=== PATIENT | male | born 1970 | race Caucasian/White ===

== ENCOUNTER 2019-03-22 18:44 | Emergency (ER) | payer OTHER, SELFPAY ==
[2019-03-22 18:49] VITALS: BP 150/78; PULSE 75; RESP 14; TEMP 36.4; O2SAT 95; BMI 29.0
--- NOTE | 2019-03-22 19:04 | DI.CT.S_ITS ---
PROCEDURE: CT HEAD/BRAIN WO CON INDICATIONS: worst headache of life TECHNIQUE: Noncontrast 4.5 mm thick angled axial sections acquired from the foramen magnum to the vertex, with coronal and sagittal reformats. For radiation dose reduction, the following was used: automated exposure control, adjustment of mA and/or kV according to patient size. COMPARISON: None. FINDINGS: Image quality: Excellent. CSF spaces: Basal cisterns are patent. No extra-axial fluid collections. Ventricles are normal in size and shape. Brain: No midline shift. No intracranial masses or hemorrhage. Marroquin-white matter interface is normal. Skull and face: Calvarium and visualized facial bones are intact, without suspicious lesions. Sinuses: Visualized sinuses and mastoids are clear. IMPRESSION: No acute intracranial disease process. Dictated by: Mallory Cain MD, PhD on 03/22/2019 at 19:59 Approved by: Mallory Cain MD, PhD on 03/22/2019 at 20:01
[2019-03-22 19:18] LABS: Add Manual Diff / Slide Review NO; Basophils Absolute Auto 0 /uL (0-100); Basophils Percent Auto 0.5 % (0-2); Eosinophils Absolute Auto 100 /uL (0-450); Eosinophils Percent Auto 0.6 % (2-4); Hematocrit 50.1 % (41-53); Hemoglobin 16.8 g/dL (13.5-17.5); Lymphocytes Absolute Auto 1300 /uL (1100-4500); Lymphocytes Percent Auto 13.8 % (25-40); Mean Corpuscular HGB Conc 33.6 % (30-36); Mean Corpuscular Hemoglobin 29.2 PG (26-34); Mean Corpuscular Volume 87.1 fL (80-100); Monocytes Absolute Auto 500 /uL (0-900); Monocytes Percent Auto 4.8 % (3-14); Neutrophils Absolute Auto 7800 /uL (1500-7000); Neutrophils Percent Auto 80.3 % (50-75); Platelet Count 293 X10^3/uL (150-400); Red Blood Cell Count 5.75 X10^6/uL (4.5-5.9); Red Cell Distribution Width 13.4 % (11.6-14.8); White Blood Cell Count 9.8 X10^3/uL (4.5-11.0)
--- NOTE | 2019-03-22 19:25 | ED.HA ---
HPI - Headache General Chief Complaint: Headache Stated Complaint: MIGRAINE Time Seen by Provider: 03/22/19 19:00 Source: patient and family Mode of arrival: ambulatory Limitations: no limitations History of Present Illness HPI Narrative: 48-year-old male nonsmoker with history of migraines presents with a severe, sudden onset frontal headache that started during intercourse. His pain he is an 8.5/10 and worsened by bright lights, loud noise and exertion. It is associated with nausea and vomiting. He has had episodes of blurred vision but no ongoing. He denies other neurologic symptoms such as numbness, weakness or tingling. He does have a history of migraines which historically get better with Imitrex, this 1 obviously did not. He denies any recent injury, fever or chills. MD Complaint: headache and migraine Onset (ago): hour(s) Onset description: sudden Location: frontal Severity: severe Severity scale (1-10): 8 Quality: aching, throbbing and different than previous headaches Relieving factors: nothing Context: occurred with exertion/activity Associated symptoms: nausea and vomiting Treatments prior to arrival: migraine medication Related Data Home Medications Medication Instructions Recorded Confirmed propranolol [Inderal LA] 80 mg PO QDAY #30 cap 06/20/16 dgfenllxtn-glkcwbiapcmiu-ezwk 1 cap PO Q4H PRN 03/22/19 03/22/19 sertraline 25 mg PO DAILY 03/22/19 03/22/19 sumatriptan succinate [Imitrex] 50 mg PO Q2-4H PRN 03/22/19 03/22/19 Allergies Allergy/AdvReac Type Severity Reaction Status Date / Time No Known Drug Allergies Allergy Verified 03/22/19 18:54 Review of Systems Constitutional Denies chills, Denies fever(s), Reports headache(s), Denies lethargy and Denies weakness Eyes Denies change in vision, Denies eye discharge, Denies irritation and Denies loss of vision ENT Ears, Nose, Mouth, and Throat: Denies change in voice, Reports headache(s), Denies neck pain and Denies sore throat Cardiovascular Denies chest pain, Denies irregular heart rhythm, Denies lightheadedness, Denies palpitations, Denies dyspnea, Denies dyspnea on exertion and Denies orthopnea Respiratory Denies cough, Denies dyspnea, Denies dyspnea on exertion and Denies wheezing Gastrointestinal Gastrointestinal: Denies abdominal pain, Denies change in bowel habits, Denies diarrhea, Reports nausea and Reports vomiting Genitourinary Denies hematuria, Denies flank pain, Denies urinary incontinence and Denies urinary urgency Musculoskeletal Denies neck pain Integumentary/Breasts Denies pruritus, Denies erythema, Denies rash and Denies wounds Neurologic Denies confusion, Reports headache(s), Denies loss of vision and Denies weakness Psychiatric Denies anxiety, Denies confusion, Denies depression, Denies homicidal ideation and Denies suicidal ideation Endocrine Denies palpitations Hematologic/Lymphatic Denies easy bruising Allergic/Immunologic Denies wheezing [facility] Medical History Migraine (Acute) Social History Smoking Status: Never smoker Social History Smoking Status: Never smoker Exam Narrative Exam Narrative: GENERAL: 48-year-old male appears stated age, obviously uncomfortable, rubbing his forehead, sitting in a dark room HEAD: Atraumatic. Normocephalic. No temporal or scalp tenderness. EYES: Pupils equal round and reactive. Extraocular motions intact. No scleral icterus. No injection or drainage. ENT: Nose without bleeding, purulent drainage or septal hematoma. Throat without erythema, tonsillar hypertrophy or exudate. Uvula midline. Airway patent. NECK: Trachea midline. No JVD or lymphadenopathy. Supple, nontender, no meningeal signs. CARDIOVASCULAR: Regular rate and rhythm without murmurs, gallops, or rubs. RESPIRATORY: Clear to auscultation. Breath sounds equal bilaterally. No wheezes, rales, or rhonchi. GASTROINTESTINAL: Abdomen soft, non-tender, nondistended. No hepato-splenomegaly, or palpable masses. No guarding. EXTREMITIES: No clubbing, cyanosis, or edema. No joint tenderness, effusion, or edema noted. BACK: Nontender without deformity or crepitance. No flank tenderness. NEURO: AOx3. SKIN: No rash or erythema. NIH Stroke Scale 1a. LOC: Patient is alert and keenly responsive (0) 1b. LOC Questions: Patient answers both LOC questions accurately (0) 1c. LOC Commands: Patient performs both tasks correctly (0) 2. Best Gaze: Normal (0) 3. Visual: No visual loss (0) 4. Facial palsy: Normal symmetrical movements (0) 5. Motor arm: No drift (0) 6. Motor leg: No drift (0) 7. Limb ataxia: Absent (0) 8. Sensory: Normal (0) 9. Best language: No aphasia; normal (0) 10. Dysarthria: Normal (0) 11. Extinction and inattention: No abnormality (0) NIHSS: 0 Initial Vital Signs Initial Vital Signs: Vital Signs Temperature 97.6 F 03/22/19 18:49 Pulse Rate 75 03/22/19 18:49 Respiratory Rate 14 03/22/19 18:49 Blood Pressure 150/78 H 03/22/19 18:49 Pulse Oximetry 95 03/22/19 18:49 Course Orders Ordered: ED Orders 03/22/19 19:04 CT head/brain wo con Stat 03/22/19 19:10 Complete Blood Count AUTO DIFF Stat Comprehensive Metabolic Panel Stat PTT [Partial Thromboplastin Time] Stat Prothrombin Time INR Stat Discontinued Medications Dexamethasone (Decadron) 10 mg IV NOW ONE Stop: 03/22/19 19:20 Last Admin: 03/22/19 19:26 Dose: 10 mg Diphenhydramine HCl (Benadryl) 25 mg IV NOW ONE Stop: 03/22/19 19:20 Last Admin: 03/22/19 19:26 Dose: 25 mg Sodium Chloride (Normal Saline 0.9%) 1,000 mls @ 1,000 mls/hr IV BOLUS ONE Stop: 03/22/19 20:18 Last Infusion: 03/22/19 21:01 Dose: 0 mls/hr Admin: 03/22/19 19:26 Dose: 1,000 mls/hr Ketorolac Tromethamine (Toradol) 15 mg IV NOW ONE Stop: 03/22/19 20:07 Last Admin: 03/22/19 20:18 Dose: 15 mg Lorazepam (Ativan) 1 mg IV NOW ONE Stop: 03/22/19 19:55 Last Admin: 03/22/19 19:56 Dose: 1 mg Metoclopramide HCl (Reglan) 10 mg IV NOW ONE Stop: 03/22/19 19:20 Last Admin: 03/22/19 19:26 Dose: 10 mg Reevaluation(s) Reevaluation #1: Patient feels moderate improvement of symptoms after 1st round of medications including saline, Reglan and Benadryl. Patient got a bit sleepy and admittedly, bit irritated with Reglan. He states he felt like he was crawling on his skin. He rebounded nicely after a bit of Ativan and Toradol were given. Soon thereafter his pain had dropped to a 2 or 3 Vital Signs - 8 hr 03/22/19 21:49 Pulse Rate 58 L Respiratory Rate 16 Blood Pressure 119/82 Pulse Oximetry 95 MDM - Headache Lab Data Result diagrams: 03/22/19 19:10 03/22/19 19:10 Lab Results 03/22/19 03/22/19 03/22/19 Range/Units 19:10 19:10 19:10 WBC 9.8 (4.5-11.0) X10^3/uL RBC 5.75 (4.5-5.9) X10^6/uL Hgb 16.8 (13.5-17.5) g/dL Hct 50.1 (41-53) % MCV 87.1 (80-100) fL MCH 29.2 (26-34) PG MCHC 33.6 (30-36) % RDW 13.4 (11.6-14.8) % Plt Count 293 (150-400) X10^3/uL Neut % (Auto) 80.3 H (50-75) % Lymph % (Auto) 13.8 L (25-40) % [place] % (Auto) 4.8 (3-14) % Eos % (Auto) 0.6 L (2-4) % Baso % (Auto) 0.5 (0-2) % Neut # (Auto) 7800 H (3894-6852) /uL Lymph # (Auto) 1300 (1989-9720) /uL [place] # (Auto) 500 (0-900) /uL Eos # (Auto) 100 (0-450) /uL Baso # (Auto) 0 (0-100) /uL PT 11.1 (10.1-12.7) SECONDS INR 1.0 (0.9-1.3) APTT 33 (26.4-36.2) SECONDS Sodium 141 (137-145) mmol/L Potassium 3.8 (3.4-5.1) mmol/L Chloride 105 (98-107) mmol/L Carbon Dioxide 25 (22-32) mmol/L BUN 12 (9-20) mg/dL Creatinine 0.90 (0.66-1.25) mg/dL Estimated GFR > 60.0 (>60) mL/min BUN/Creatinine Ratio 13.3 (6-22) Glucose 107 H (70-100) mg/dL Calcium 9.5 (8.4-10.2) mg/dL Total Bilirubin 0.3 (0.2-1.3) mg/dL AST 25 (17-59) IU/L ALT 36 (21-72) IU/L Alkaline Phosphatase 66 (38-126) U/L Total Protein 8.2 (6.3-8.2) g/dL Albumin 4.9 (3.5-5.0) g/dL Globulin 3.3 (1.7-4.1) g/dL Albumin/Globulin Ratio 1.5 (1.0-2.8) Imaging Data CT scan - head: Radiologist's impression: Chart Viewer Diagnostics DATE TYPE STATUS AUTHOR Hx 03/22/19 19:04 Mallory Cain Dawson Skaggs 48, M0 1970 DEP ER, ED.LOC - Main ED 180.34cm 94.347kg BMI: 29.0kg/m? Headache Search Chart ONSET 03/22/19 21:49 Dawson Skaggs 48 [place] 1970 [place] [address] CT Scan Report Signed Patient: Dawson Skaggs HMR#: [id number] : 1970Acct:[id number] Age/Sex: 48 / MDate of Service: 03/22/19 Loc: ED Accession Number: [id number] Procedure: CT head/brain wo con Ordering Provider: Geoffrey Lazar D.O. PROCEDURE: CT HEAD/BRAIN WO CON INDICATIONS: worst headache of life TECHNIQUE: Noncontrast 4.5 mm thick angled axial sections acquired from the foramen magnum to the vertex, with coronal and sagittal reformats. For radiation dose reduction, the following was used: automated exposure control, adjustment of mA and/or kV according to patient size. COMPARISON: None. FINDINGS: Image quality: Excellent. CSF spaces: Basal cisterns are patent. No extra-axial fluid collections. Ventricles are normal in size and shape. Brain: No midline shift. No intracranial masses or hemorrhage. Marroquin-white matter interface is normal. Skull and face: Calvarium and visualized facial bones are intact, without suspicious lesions. Sinuses: Visualized sinuses and mastoids are clear. IMPRESSION: No acute intracranial disease process. Dictated by: Mallory Cain MD, PhD on 03/22/2019 at 19:59 Approved by: Mallory Cain MD, PhD on 03/22/2019 at 20:01 [facility] Narrative Medical decision making narrative: Multiple etiologies for patient's symptoms considered including: [Atypical migraine versus subarachnoid hemorrhage versus other] Patient's symptoms improved or duration of stay with above-stated therapies. Findings and discharge diagnosis discussed with patient/family followed by verbalization of understanding Return precautions discussed with patient/family whom verbalize understanding. Discharge Plan Departure Patient Disposition: Home Clinical Impression: Headache Qualifiers: Headache type: unspecified Headache chronicity pattern: acute headache Intractability: not intractable Qualified Code(s): R51 - Headache Discharge Date/Time: 03/22/19 21:10 Interventions: ED Discharge Assessment Last Done: 03/22/19 21:49 Instructions: DI for Headache Activity Restrictions/Additional Instructions: *You have been diagnosed with [ acute headache ] *What to do: *Take medications as directed *Follow up with your primary care provider in 2-3 days, call for an appointment. Let them know you were seen in the Emergency Department and that we ask that you be seen in follow up *Return to ER if you should have any new, worsening or concerning symptoms Prescriptions: No Action propranolol [Inderal LA] 80 MG capsule,extended release 24 hr 80 mg PO QDAY Qty: 30 RF: 0 pzossqmrez-hsqaqfwokkgvf-robk 50-325-40 mg Capsule 1 cap PO Q4H PRN (Reason: Migraine Headache) RF: 0 sumatriptan succinate [Imitrex] 25 mg Tablet 50 mg PO Q2-4H PRN (Reason: Migraine Headache) RF: 0 sertraline 25 mg tablet 25 mg PO DAILY RF: 0
[2019-03-22 19:26] LABS: Prothrombin Time 11.1 SECONDS (10.1-12.7)
[2019-03-22] MEDS: DEXAMETHASONE 10 MG/ML VIAL IV (19:26)
[2019-03-22] MEDS: METOCLOPRAMIDE 10 MG/2 ML INJ IV (19:26)
[2019-03-22] MEDS: SODIUM CHLORIDE 0.9% 1,000 ML 1000 ML IV (19:26)
[2019-03-22] MEDS: diphenhydrAMINE 50 MG/ML VIAL 25 MG IV (19:26)
[2019-03-22 19:29] LABS: PTT Partial Thromboplastin Tim 33 SECONDS (26.4-36.2)
[2019-03-22 19:30] LABS: Alanine Aminotransferase 36 IU/L (21-72); Albumin 4.9 g/dL (3.5-5.0); Albumin Globulin Ratio 1.5 (1.0-2.8); Alkaline Phosphatase 66 U/L (38-126); Aspartate Aminotransferase 25 IU/L (17-59); BUN Creatinine Ratio 13.3 (6-22); Bilirubin Total 0.3 mg/dL (0.2-1.3); Blood Urea Nitrogen 12 mg/dL (9-20); Calcium 9.5 mg/dL (8.4-10.2); Carbon Dioxide 25 mmol/L (22-32); Chloride 105 mmol/L (98-107); Estimated Glomerular Filt Rate > 60.0 mL/min (>60); Globulin 3.3 g/dL (1.7-4.1); Glucose 107 mg/dL (70-100); HEMOLYSIS 16 (0-50); Potassium 3.8 mmol/L (3.4-5.1); Sodium 141 mmol/L (137-145); Total Protein 8.2 g/dL (6.3-8.2)
[2019-03-22] MEDS: LORazepam 2 MG/ML SYRINGE 1 MG IV (19:56)
[2019-03-22] MEDS: KETOROLAC 60 MG/2 ML VIAL 15 MG IV (20:18)
[2019-03-22 21:49] VITALS: BP 119/82; PULSE 58; RESP 16; O2SAT 95
--- NOTE | 2019-03-23 04:07 | ED_ITS ---
HPI - Headache General Chief Complaint: Headache Stated Complaint: MIGRAINE Time Seen by Provider: 03/22/19 19:00 Source: patient and family Mode of arrival: ambulatory Limitations: no limitations History of Present Illness HPI Narrative: 48-year-old male nonsmoker with history of migraines presents with a severe, sudden onset frontal headache that started during intercourse. His pain he is an 8.5/10 and worsened by bright lights, loud noise and exertion. It is associated with nausea and vomiting. He has had episodes of blurred vision but no ongoing. He denies other neurologic symptoms such as numbness, we akness or tingling. He does have a history of migraines which historically get better with Imitrex, this 1 obviously did not. He denies any recent injury, fever or chills. MD Complaint: headache and migraine Onset (ago): hour(s) Onset description: sudden Location: frontal Severity: severe Severity scale (1-10): 8 Quality: aching, throbbing and different than previous headaches Relieving factors: nothing Context: occurred with exertion/activity Associated symptoms: nausea and vomiting Treatments prior to arrival: migraine medication Related Data Home Medications Medication Instructions Recorded Confirmed propranolol [Inderal LA] 80 mg PO QDAY #30 cap 06/20/16 lpetlebboz-dnxcjtzuhenmp-iwzi 1 cap PO Q4H PRN 03/22/19 03/22/19 sertraline 25 mg PO DAILY 03/22/19 03/22/19 sumatriptan succinate [Imitrex] 50 mg PO Q2-4H PRN 03/22/19 03/22/19 Allergies Allergy/AdvReac Type Severity Reaction Status Date / Time No Known Drug Allergies Allergy Verified 03/22/19 18:54 Review of Systems Constitutional Denies chills, Denies fever(s), Reports headache(s), Denies lethargy and Denies weakness Eyes Denies change in vision, Denies eye discharge, Denies irritation and Denies loss of vision ENT Ears, Nose, Mouth, and Throat: Denies change in voice, Reports headache(s), Denies neck pain and Denies sore throat Cardiovascular Denies chest pain, Denies irregular heart rhythm, Denies lightheadedness, Denies palpitations, Denies dyspnea, Denies dyspnea on exertion and Denies orthopnea Respiratory Denies cough, Denies dyspnea, Denies dyspnea on exertion and Denies wheezing Gastrointestinal Gastrointestinal: Denies abdominal pain, Denies change in bowel habits, Denies diarrhea, Reports nausea and Reports vomiting Genitourinary Denies hematuria, Denies flank pain, Denies urinary incontinence and Denies urinary urgency Musculoskeletal Denies neck pain Integumentary/Breasts Denies pruritus, Denies erythema, Denies rash and Denies wounds Neurologic Denies confusion, Reports headache(s), Denies loss of vision and Denies weakness Psychiatric Denies anxiety, Denies confusion, Denies depression, Denies homicidal ideation and Denies suicidal ideation Endocrine Denies palpitations Hematologic/Lymphatic Denies easy bruising Allergic/Immunologic Denies wheezing PFSH Medical History Migraine (Acute) Social History Smoking Status: Never smoker Social History Smoking Status: Never smoker Exam Narrative Exam Narrative: GENERAL: 48-year-old male appears stated age, obviously uncomfortable, rubbing his forehead, sitting in a dark room HEAD: Atraumatic. Normocephalic. No temporal or scalp tenderness. EYES: Pupils equal round and reactive. Extraocular motions intact. No scleral icterus. No injection or drainage. ENT: Nose without bleeding, purulent drainage or septal hematoma. Throat without erythema, tonsillar hypertrophy or exudate. Uvula midline. Airway patent. NECK: Trachea midline. No JVD or lymphadenopathy. Supple, nontender, no meningeal signs. CARDIOVASCULAR: Regular rate and rhythm without murmurs, gallops, or rubs. RESPIRATORY: Clear to auscultation. Breath sounds equal bilaterally. No wheezes, rales, or rhonchi. GASTROINTESTINAL: Abdomen soft, non-tender, nondistended. No hepato- splenomegaly, or palpable masses. No guarding. EXTREMITIES: No clubbing, cyanosis, or edema. No joint tenderness, effusion, or edema noted. BACK: Nontender without deformity or crepitance. No flank tenderness. NEURO: AOx3. SKIN: No rash or erythema. NIH Stroke Scale 1a. LOC: Patient is alert and keenly responsive (0) 1b. LOC Questions: Patient answers both LOC questions accurately (0) 1c. LOC Commands: Patient performs both tasks correctly (0) 2. Best Gaze: Normal (0) 3. Visual: No visual loss (0) 4. Facial palsy: Normal symmetrical movements (0) 5. Motor arm: No drift (0) 6. Motor leg: No drift (0) 7. Limb ataxia: Absent (0) 8. Sensory: Normal (0) 9. Best language: No aphasia; normal (0) 10. Dysarthria: Normal (0) 11. Extinction and inattention: No abnormality (0) NIHSS: 0 Initial Vital Signs Initial Vital Signs: Vital Signs Temperature 97.6 F 03/22/19 18:49 Pulse Rate 75 03/22/19 18:49 Respiratory Rate 14 03/22/19 18:49 Blood Pressure 150/78 H 03/22/19 18:49 Pulse Oximetry 95 03/22/19 18:49 Course Orders Ordered: ED Orders 03/22/19 19:04 CT head/brain wo con Stat 03/22/19 19:10 Complete Blood Count AUTO DIFF Stat Comprehensive Metabolic Panel Stat PTT [Partial Thromboplastin Time] Stat Prothrombin Time INR Stat Discontinued Medications Dexamethasone (Decadron) 10 mg IV NOW ONE Stop: 03/22/19 19:20 Last Admin: 03/22/19 19:26 Dose: 10 mg Diphenhydramine HCl (Benadryl) 25 mg IV NOW ONE Stop: 03/22/19 19:20 Last Admin: 03/22/19 19:26 Dose: 25 mg Sodium Chloride (Normal Saline 0.9%) 1,000 mls @ 1,000 mls/hr IV BOLUS ONE Stop: 03/22/19 20:18 Last Infusion: 03/22/19 21:01 Dose: 0 mls/hr Admin: 03/22/19 19:26 Dose: 1,000 mls/hr Ketorolac Tromethamine (Toradol) 15 mg IV NOW ONE Stop: 03/22/19 20:07 Last Admin: 03/22/19 20:18 Dose: 15 mg Lorazepam (Ativan) 1 mg IV NOW ONE Stop: 03/22/19 19:55 Last Admin: 03/22/19 19:56 Dose: 1 mg Metoclopramide HCl (Reglan) 10 mg IV NOW ONE Stop: 03/22/19 19:20 Last Admin: 03/22/19 19:26 Dose: 10 mg Reevaluation(s) Reevaluation #1: Patient feels moderate improvement of symptoms after 1st round of medications including saline, Reglan and Benadryl. Patient got a bit sleepy and admittedly, bit irritated with Reglan. He states he felt like he was crawling on his skin. He rebounded nicely after a bit of Ativan and Toradol were given. Soon thereafter his pain had dropped to a 2 or 3 Vital Signs - 8 hr 03/22/19 21:49 Pulse Rate 58 L Respiratory Rate 16 Blood Pressure 119/82 Pulse Oximetry 95 MDM - Headache Lab Data Result diagrams: 03/22/19 19:10 03/22/19 19:10 Lab Results 03/22/19 03/22/19 03/22/19 Range/Units 19:10 19:10 19:10 WBC 9.8 (4.5-11.0) X10^3/uL RBC 5.75 (4.5-5.9) X10^6/uL Hgb 16.8 (13.5-17.5) g/dL Hct 50.1 (41-53) % MCV 87.1 (80-100) fL MCH 29.2 (26-34) PG MCHC 33.6 (30-36) % RDW 13.4 (11.6-14.8) % Plt Count 293 (150-400) X10^3/uL Neut % (Auto) 80.3 H (50-75) % Lymph % (Auto) 13.8 L (25-40) % [place] % (Auto) 4.8 (3-14) % Eos % (Auto) 0.6 L (2-4) % Baso % (Auto) 0.5 (0-2) % Neut # (Auto) 7800 H (8121-5192) /uL Lymph # (Auto) 1300 (7332-6057) /uL [place] # (Auto) 500 (0-900) /uL Eos # (Auto) 100 (0-450) /uL Baso # (Auto) 0 (0-100) /uL PT 11.1 (10.1-12.7) SECONDS INR 1.0 (0.9-1.3) APTT 33 (26.4-36.2) SECONDS Sodium 141 (137-145) mmol/L Potassium 3.8 (3.4-5.1) mmol/L Chloride 105 (98-107) mmol/L Carbon Dioxide 25 (22-32) mmol/L BUN 12 (9-20) mg/dL Creatinine 0.90 (0.66-1.25) mg/dL Estimated GFR > 60.0 (>60) mL/min BUN/Creatinine Ratio 13.3 (6-22) Glucose 107 H (70-100) mg/dL Calcium 9.5 (8.4-10.2) mg/dL Total Bilirubin 0.3 (0.2-1.3) mg/dL AST 25 (17-59) IU/L ALT 36 (21-72) IU/L Alkaline Phosphatase 66 (38-126) U/L Total Protein 8.2 (6.3-8.2) g/dL Albumin 4.9 (3.5-5.0) g/dL Globulin 3.3 (1.7-4.1) g/dL Albumin/Globulin Ratio 1.5 (1.0-2.8) Imaging Data CT scan - head: Radiologist's impression: Chart Viewer Diagnostics DATE TYPE STATUS AUTHOR Hx 03/22/19 19:04 Mallory Cain Dawson Skaggs 48, M0 1970 DEP ER, ED.LOC - Main ED 180.34cm 94.347kg BMI: 29.0kg/m? Headache Search Chart ONSET 03/22/19 21:49 Dawson Skaggs 48 M 1970 [place] [address] CT Scan Report Signed Patient: Dawson Skaggs R#: [id number] : 1970Acct:[id number] Age/Sex: 48 / MDate of Service: 03/22/19 Loc: ED Accession Number: [id number] Procedure: CT head/brain wo con Ordering Provider: Geoffrey Lazar D.O. PROCEDURE: CT HEAD/BRAIN WO CON INDICATIONS: worst headache of life TECHNIQUE: Noncontrast 4.5 mm thick angled axial sections acquired from the foramen magnum to the vertex, with coronal and sagittal reformats. For radiation dose reduction, the following was used: automated exposure control, adjustment of mA and/or kV according to patient size. COMPARISON: None. FINDINGS: Image quality: Excellent. CSF spaces: Basal cisterns are patent. No extra-axial fluid collections. Ventricles are normal in size and shape. Brain: No midline shift. No intracranial masses or hemorrhage. Marroquin-white matter interface is normal. Skull and face: Calvarium and visualized facial bones are intact, without suspicious lesions. Sinuses: Visualized sinuses and mastoids are clear. IMPRESSION: No acute intracranial disease process. Dictated by: Mallory Cain MD, PhD on 03/22/2019 at 19:59 Approved by: Mallory Cain MD, PhD on 03/22/2019 at 20:01 [facility] Narrative Medical decision making narrative: Multiple etiologies for patient's symptoms considered including: [Atypical migraine versus subarachnoid hemorrhage versus other] Patient's symptoms improved or duration of stay with above-stated therapies. Findings and discharge diagnosis discussed with patient/family followed by verbalization of understanding Return precautions discussed with patient/family whom verbalize understanding. Discharge Plan Departure Patient Disposition: Home Clinical Impression: Headache Qualifiers: Headache type: unspecified Headache chronicity pattern: acute headache Intractability: not intractable Qualified Code(s): R51 - Headache Discharge Date/Time: 03/22/19 21:10 Interventions: ED Discharge Assessment Last Done: 03/22/19 21:49 Instructions: DI for Headache Activity Restrictions/Additional Instructions: *You have been diagnosed with [ acute headache ] *What to do: *Take medications as directed *Follow up with your primary care provider in 2-3 days, call for an appointment. Let them know you were seen in the Emergency Department and that we ask that you be seen in follow up *Return to ER if you should have any new, worsening or concerning symptoms Prescriptions: No Action propranolol [Inderal LA] 80 MG capsule,extended release 24 hr 80 mg PO QDAY Qty: 30 RF: 0 csqxfhavth-gknzaptahgoqt-yxgw 50-325-40 mg Capsule 1 cap PO Q4H PRN (Reason: Migraine Headache) RF: 0 sumatriptan succinate [Imitrex] 25 mg Tablet 50 mg PO Q2-4H PRN (Reason: Migraine Headache) RF: 0 sertraline 25 mg tablet 25 mg PO DAILY RF: 0
== END 2019-03-22 21:10 | disposition home or self-care (01) ==
PROVIDERS: Emergency Provider Emergency Medicine
DX: R51 Headache (principal); R11.2 Nausea with vomiting, unspecified; H53.8 Other visual disturbances
CPT/HCPCS: 36591; 70450; 80053; 85025; 85610; 85730; 96361; 96374; 96375; 99283; 99284; J1100; J1200; J1885; J2060; J2765

== ENCOUNTER → 2021-06-13 19:01 | Outpatient (CLI) | payer OTHER, SELFPAY ==
--- NOTE | 2021-06-13 | DI.MRI.S_ITS ---
PROCEDURE: MR CERVICAL SPINE WO CON INDICATIONS: Radiculopathy, cervical region TECHNIQUE: Noncontrast sagittal T1 spin echo and T2 fast spin echo, sagittal STIR, foraminal oblique sagittal T2 fast spin echo, and axial gradient echo or T2 fast spin echo through the cervical spine. COMPARISON: None. FINDINGS: Image quality: Excellent. Alignment and Curvature: There is normal bony alignment. Bone Marrow: Reactive endplate changes noted adjacent to the C5-C6 and C6-C7 discs. Spinal Cord: Visualized spinal cord has normal size and signal. No cerebellar tonsillar herniation. Paraspinous Soft Tissues: No paravertebral masses. Prevertebral soft tissues are normal in thickness. C2-C3: Loss of disc signal. No central stenosis. Mild bilateral facet hypertrophy. Mild bilateral neural foraminal narrowing. No neural compression. C3-C4: Loss of disc signal. Mild, diffuse disc bulge. Mild bilateral facet hypertrophy. Mild bilateral uncovertebral joint hypertrophy. Mild narrowing of the central canal. Severe bilateral neural foraminal narrowing with compression of the exiting C4 nerve roots. C4-C5: Loss of disc signal and slight loss of disc height. Mild, diffuse disc bulge. Mild bilateral facet hypertrophy. Mild narrowing of the central canal. Moderate to severe bilateral neural foraminal narrowing. No neural compression. C5-C6: Loss of disc signal and height. Moderate, diffuse disc bulge. Severe narrowing of the central canal with slight compression of the cervical spinal cord. Mild bilateral facet hypertrophy. Moderate bilateral uncovertebral joint hypertrophy. Severe bilateral neural foraminal narrowing with compression of the exiting C6 nerve roots. C6-C7: Loss of disc signal and height. Mild, diffuse disc bulge. Mild bilateral facet hypertrophy. Mild bilateral uncovertebral joint hypertrophy. Mild to moderate narrowing of the central canal. Severe bilateral neural foraminal narrowing with compression of the exiting C7 nerve roots. C7-T1: Loss of disc signal and height. Mild to moderate diffuse disc bulge. Mild bilateral facet hypertrophy. Mild narrowing of the central canal. Moderate right and mild left neural foraminal narrowing. No neural compression IMPRESSION: 1. Multilevel degenerative disc disease. 2. Multilevel facet and uncovertebral arthropathy. 3. Severe C5-C6 central canal narrowing with compression of the cervical spinal cord. 4. Severe bilateral C3-C4, C5-C6 and C6-C7 neural foraminal narrowing with compression of the exiting bilateral C4, C6 and C7 nerve roots. Dictated by: Mallory Cain MD, PhD on 06/14/2021 at 9:54 Approved by: Mallory Cain MD, PhD on 06/14/2021 at 9:58
== END ==
PROVIDERS: PCP Nurse Practitioner Family; Referring Provider Family Medicine; Visit Provider Family Medicine
DX: M50.11 Cervical disc disorder with radiculopathy, high cervical region (principal); M47.22 Other spondylosis with radiculopathy, cervical region; M48.02 Spinal stenosis, cervical region
CPT/HCPCS: 72141

== ENCOUNTER → 2021-07-19 09:41 | Outpatient (CLI) | payer OTHER, SELFPAY ==
--- NOTE | 2021-07-19 | DI.RAD.S_ITS ---
PROCEDURE: XR CERVICAL SPINE 4V OR 5V INDICATIONS: Spondylosis without myelopathy or radiculopathy, c TECHNIQUE: 5 views of the cervical spine acquired. COMPARISON: None. FINDINGS: Bones: No acute fracture. Straightening of the normal lordotic curvature. Multilevel degenerative endplate sclerosis and spurring. Diffuse facet arthropathy. Moderate narrowing of the C5-C6 and C6-C7 disc space. Mild narrowing of the C7-T1 disc space. On the right, mild C3-C4, C4-C5 and C5-C6 bony foraminal narrowing. On the left, moderate C5-C6 bony foraminal narrowing. Mild C3-C4 bony foraminal narrowing. Soft tissues: No prevertebral soft tissue swelling. IMPRESSION: Cervical spondylosis and facet arthropathy as above. Dictated by: Ji Aguilar M.D. on 07/19/2021 at 11:03 Approved by: Ji Aguilar M.D. on 07/19/2021 at 11:06
--- NOTE | 2021-07-19 10:08 | DI.CT.S_ITS ---
PROCEDURE: CT CERVICAL SPINE WO CON INDICATIONS: Spondylosis without myelopathy or radiculopathy, c TECHNIQUE: Noncontrast 3 mm thick sections acquired from the skull base to the T4 level. Sagittal and coronal reformats were then constructed. For radiation dose reduction, the following was used: automated exposure control, adjustment of mA and/or kV according to patient size. COMPARISON: [facility], MR, MR CERVICAL SPINE WO CON, 06/13/2021, 19:11. [facility], CR, XR CERVICAL SPINE 4V OR 5V, 07/19/2021, 9:48. FINDINGS: Image quality: Excellent. Bones: No fractures or dislocations. Visualized superior ribs are intact. There is moderate to severe disc space narrowing seen at the C5-C6 level, with associated endplate irregularity and sclerosis. Posteriorly projected endplate osteophytes are seen. There is moderate to severe central canal narrowing seen at C5-C6. Moderate to severe bilateral neural foraminal narrowing can be seen at this level, right worse than left. Moderate disc space narrowing is seen at C6-C7, with mild sclerosis and endplate irregularity posteriorly, with posteriorly directed endplate osteophytes. Focal degenerative change is seen involving the C1-C2 interface anteriorly. Milder degenerative changes are seen elsewhere. Soft tissues: Prevertebral soft tissues are normal in thickness. No paravertebral hematomas. No apical pneumothoraces. IMPRESSION: Focal lower cervical spine degenerative changes are seen, which are overall worst at C5-C6. Dictated by: Darek Amin M.D. on 07/19/2021 at 9:17 Approved by: Darek Amin M.D. on 07/19/2021 at 9:20
== END ==
PROVIDERS: PCP Nurse Practitioner Family; Referring Provider Neurological Surgery; Visit Provider Neurological Surgery
DX: M47.12 Other spondylosis with myelopathy, cervical region (principal); M47.22 Other spondylosis with radiculopathy, cervical region; M48.02 Spinal stenosis, cervical region
CPT/HCPCS: 72050; 72125

== ENCOUNTER 2023-01-20 17:32 | Emergency (ER) | payer OTHER, SELFPAY ==
[2023-01-20 17:35] VITALS: BP 158/104; PULSE 74; RESP 18; TEMP 37.3; O2SAT 96; BMI 30.1
[2023-01-20 17:40] VITALS: PULSE 73; RESP 24; O2SAT 96
--- NOTE | 2023-01-20 17:44 | DI.RAD.S_ITS ---
PROCEDURE: XR CHEST 1V INDICATIONS: chest pain TECHNIQUE: One view of the chest was acquired. COMPARISON: [facility], , CHEST 1 VIEW, 06/20/2016, 22:01. FINDINGS: Surgical changes and devices: None. Lungs and pleura: Lungs are clear. No pleural effusions or pneumothorax. Mediastinum: Mediastinal contours appear normal. Heart size is normal. Bones and chest wall: No suspicious bony lesions. Overlying soft tissues appear unremarkable. IMPRESSION: Portable chest within normal limits. Dictated by: Darek Amin M.D. on 01/20/2023 at 17:22 Approved by: Darek Amin M.D. on 01/20/2023 at 17:22
[2023-01-20 18:00] VITALS: BP 140/79; PULSE 71; RESP 28; O2SAT 96
[2023-01-20 18:15] LABS: Add Manual Diff / Slide Review NO; Basophils Absolute Auto 100 /uL (0-100); Basophils Percent Auto 0.9 % (0-2); Eosinophils Absolute Auto 100 /uL (0-450); Eosinophils Percent Auto 1.5 % (2-4); Hemoglobin 15.2 g/dL (13.5-17.5); Lymphocytes Absolute Auto 2100 /uL (1100-4500); Lymphocytes Percent Auto 29.5 % (25-40); Mean Corpuscular HGB Conc 33.8 % (30-36); Mean Corpuscular Hemoglobin 29.9 PG (26-34); Mean Corpuscular Volume 88.5 fL (80-100); Monocytes Absolute Auto 400 /uL (0-900); Monocytes Percent Auto 5.7 % (3-14); Neutrophils Absolute Auto 4400 /uL (1500-7000); Neutrophils Percent Auto 62.4 % (50-75); Platelet Count 210 X10^3/uL (150-400); Red Blood Cell Count 5.09 X10^6/uL (4.5-5.9); Red Cell Distribution Width 13.6 % (11.6-14.8)
--- NOTE | 2023-01-20 18:21 | ED.ARRPALP ---
HPI - Arrhythmia/Palpitations General Chief Complaint: Arrhythmia/Palpitations Stated Complaint: chest px/palpitation Time Seen by Provider: 01/20/23 17:55 Source: patient and EMS Mode of arrival: EMS History of Present Illness HPI narrative: Patient is a 52-year-old male history of hyperlipidemia presenting today her palpitations. He reports he was lying in bed washing VV when suddenly he felt his heart racing his hand on his chest and feel it pounding. Lasted for about 10 minutes. EMS reports that he was sinus tachycardic 120s and coming down. He reports feeling in his normal state of health earlier today. He has been sick febrile. He did not feel nauseous diaphoretic, no abdominal pain. Related Data Home Medications Medication Instructions Recorded Confirmed propranolol 80 mg capsule,24 80 mg PO QDAY #30 caps 06/20/16 hr,extended release (Inderal LA) qtqhofrlhb-mssedrvhwvplo-ovkaibto 1 cap PO Q4H PRN Migraine Headache 03/22/19 03/22/19 50 mg-325 mg-40 mg capsule sertraline 25 mg tablet 25 mg PO DAILY 03/22/19 03/22/19 sumatriptan succinate 25 mg tablet 50 mg PO Q2-4H PRN Migraine 03/22/19 03/22/19 (Imitrex) Headache Allergies Allergy/AdvReac Type Severity Reaction Status Date / Time No Known Drug Allergies Allergy Verified 01/20/23 17:52 Review of Systems Review of Systems ROS Unobtainable: All systems reviewed & are unremarkable except as noted in HPI and below Patient History Medical History (Updated 01/20/23 @ 18:46 by Laura Montana DO) Migraine Social History Smoking Status: Never smoker Smoking Status: Never smoker alcohol intake frequency: 0-2 drinks per day Substance Use Type: marijuana Exam Initial Vital Signs Initial Vital Signs: Vital Signs Temperature 99.1 F 01/20/23 17:35 Pulse Rate 74 01/20/23 17:35 Respiratory Rate 18 01/20/23 17:35 Blood Pressure 158/104 H 01/20/23 17:35 Pulse Oximetry 96 01/20/23 17:35 Oxygen Delivery Method 01/20/23 17:35 GENERAL: Alert pleasant 52-year-old and in no acute distress. HEENT: Head atraumatic,EOMI, pupils reactive, face symmetric, moist mucous membranes CARDIOVASCULAR: Regular rate and rhythm without murmurs, rubs or gallops. RESPIRATORY: Breath sounds equal bilaterally, no wheezes rales or rhonchi. ABDOMEN: Soft, nontender. Normoactive bowel sounds all 4 quadrants. No guarding or rebound. EXTREMITIES: Normal range of motion, no clubbing or edema. Neurovascularly intact NEUROLOGICAL: Alert and oriented x4.Normal gait and speech. SKIN: Warm, dry, no laceration, no petechiae, no rashes or lesions. Course Orders Ordered: ED Orders 01/20/23 17:41 Complete Blood Count AUTO DIFF Stat Comprehensive Metabolic Panel Stat Lipase Stat Magnesium Stat Partial Thromboplastin Time Stat Prothrombin Time INR Stat Troponin & CK Cardiac Panel Stat 01/20/23 17:44 XR chest 1V Stat EKG-12 Lead Stat Vital Signs Vital signs: Vital Signs - 8 hr 01/20/23 18:00 01/20/23 18:00 01/20/23 18:30 Pulse Rate 71 Respiratory Rate 28 H Blood Pressure 140/79 128/71 Pulse Oximetry 96 01/20/23 18:30 01/20/23 19:00 01/20/23 19:00 Pulse Rate 66 61 Respiratory Rate 24 18 Blood Pressure 116/68 Pulse Oximetry 97 96 MDM - Arrhythmia/Palpitations Lab Data 01/20/23 17:41 01/20/23 17:41 Labs: Lab Results 01/20/23 01/20/23 01/20/23 Range/Units 17:41 17:41 17:41 WBC 7.0 (4.5-11.0) X10^3/uL RBC 5.09 (4.5-5.9) X10^6/uL Hgb 15.2 (13.5-17.5) g/dL Hct 45.0 (41-53) % MCV 88.5 (80-100) fL MCH 29.9 (26-34) PG MCHC 33.8 (30-36) % RDW 13.6 (11.6-14.8) % Plt Count 210 (150-400) X10^3/uL Neut % (Auto) 62.4 (50-75) % Lymph % (Auto) 29.5 (25-40) % Bladen % (Auto) 5.7 (3-14) % Eos % (Auto) 1.5 L (2-4) % Baso % (Auto) 0.9 (0-2) % Neut # (Auto) 4400 (6434-7863) /uL Lymph # (Auto) 2100 (6801-9817) /uL Bladen # (Auto) 400 (0-900) /uL Eos # (Auto) 100 (0-450) /uL Baso # (Auto) 100 (0-100) /uL PT 11.7 (10.1-12.7) SECONDS INR 1.0 (0.9-1.3) APTT 31 (26-36) SECONDS Sodium 139 (137-145) mmol/L Potassium 3.7 (3.4-5.1) mmol/L Chloride 105 (98-107) mmol/L Carbon Dioxide 23 (22-32) mmol/L BUN 17 (9-20) mg/dL Creatinine 0.93 (0.66-1.25) mg/dL Estimated GFR > 60 (>60) mL/min BUN/Creatinine Ratio 18.3 (6-22) Glucose 122 H (70-100) mg/dL Calcium 8.7 (8.4-10.2) mg/dL Magnesium 1.9 (1.6-2.3) mg/dL Total Bilirubin 0.3 (0.2-1.3) mg/dL AST 32 (17-59) IU/L ALT 41 (<50) IU/L Alkaline Phosphatase 52 (38-126) U/L Total Creatine Kinase 142 (55-170) U/L CK-MB (CK-2) 0.99 (<2.37) ng/mL CK-MB (CK-2) Rel Index 0.7 L (1.5-5.0) % Troponin I < 0.012 (0.01-0.034) ng/mL Total Protein 7.2 (6.3-8.2) g/dL Albumin 4.0 (3.5-5.0) g/dL Globulin 3.2 (1.7-4.1) g/dL Albumin/Globulin Ratio 1.3 (1.0-2.8) Lipase 86 (23-300) U/L Imaging Data Chest x-ray: Radiologist's Impresson: PROCEDURE:? XR CHEST 1V ? INDICATIONS:? chest pain ? TECHNIQUE:? One view of the chest was acquired.? ? COMPARISON:? [facility], , CHEST 1 VIEW, 06/20/2016, 22:01. ? FINDINGS:? ? Surgical changes and devices:? None.? ? Lungs and pleura:? Lungs are clear.? No pleural effusions or pneumothorax.? ? Mediastinum:? Mediastinal contours appear normal.? Heart size is normal.? ? Bones and chest wall:? No suspicious bony lesions.? Overlying soft tissues appear unremarkable.? IMPRESSION:? ? Portable chest within normal limits. ? ? ? Dictated by: Darek Amin M.D. on 01/20/2023 at 17:22 ? ? ECG Data Interpretation: Normal sinus rhythm rate 69 [place] interval 154 QRS [address] changes no T-wave inversions MDM Narrative Medical decision making narrative: Patient 52-year-old male history of hyperlipidemia presenting today with her palpitation lasting about 10 minutes. He was tachycardic for EMS however has been in sinus rhythm. Blood work is overall reassuring today. No evidence of leukocytosis electrolyte abnormality or acute injury. He is remained in sinus rhythm with a heart rate in the 60s chest x-ray is negative. His chest x-ray has been reviewed and does not show any abnormality. Patient has not seen a PCP in 2 years he is [place]. I recommend that he get an outpatient Holter monitor or watch to help monitor his heart rate at least. Differential diagnosis includes arrhythmia, ventricular versus supraventricular, electrolyte abnormality, acute coronary syndrome, pulmonary embolism Unlikely pulmonary embolism some symptoms are not consistent and he is not persistently tachycardic Discharge Plan Departure Patient Disposition: Home Clinical Impression: Palpitations Instructions: DI for Palpitations Activity Restrictions/Additional Instructions: *You have been diagnosed with palpitations *What to do: I do recommend that he has a Holter monitor please talk with your PCP. You may try a wrist monitor in the meantime. *Continue to take medications as directed *Follow up with your primary care provider in 2-3 days or call [phone] *Return to ER if you should have palpitations dizziness chest pain shortness of breath [or] any new, worsening or concerning symptoms Prescriptions: No Action propranolol [Inderal LA] 80 MG capsule,extended release 24 hr 80 mg PO QDAY Qty: 30 wypszfnqmj-utlpklevdhzwi-burn 50-325-40 mg Capsule 1 cap PO Q4H PRN (Reason: Migraine Headache) sumatriptan succinate [Imitrex] 25 mg Tablet 50 mg PO Q2-4H PRN (Reason: Migraine Headache) sertraline 25 mg tablet 25 mg PO DAILY Referrals: Julia Cuevas ARNP [Primary Care Provider] - Stand Alone Forms: Patient Portal/API
[2023-01-20 18:25] LABS: Prothrombin Time 11.7 SECONDS (10.1-12.7)
[2023-01-20 18:28] LABS: Alanine Aminotransferase 41 IU/L (<50); Albumin Globulin Ratio 1.3 (1.0-2.8); Alkaline Phosphatase 52 U/L (38-126); Aspartate Aminotransferase 32 IU/L (17-59); BUN Creatinine Ratio 18.3 (6-22); Bilirubin Total 0.3 mg/dL (0.2-1.3); Blood Urea Nitrogen 17 mg/dL (9-20); Calcium 8.7 mg/dL (8.4-10.2); Carbon Dioxide 23 mmol/L (22-32); Chloride 105 mmol/L (98-107); Creatine Kinase 142 U/L (55-170); Estimated Glomerular Filt Rate > 60 mL/min (>60); Globulin 3.2 g/dL (1.7-4.1); Glucose 122 mg/dL (70-100); HEMOLYSIS 28 (0-50); Lipase 86 U/L (23-300); Magnesium 1.9 mg/dL (1.6-2.3); PTT Partial Thromboplastin Tim 31 SECONDS (26-36); Potassium 3.7 mmol/L (3.4-5.1); Sodium 139 mmol/L (137-145); Total Protein 7.2 g/dL (6.3-8.2)
[2023-01-20 18:30] VITALS: BP 128/71; PULSE 66; RESP 24; O2SAT 97
[2023-01-20 18:39] LABS: Troponin I < 0.012 ng/mL (0.01-0.034)
[2023-01-20 18:43] LABS: CKMB % Relative Index 0.7 % (1.5-5.0); Creatine Kinase MB 0.99 ng/mL (<2.37)
[2023-01-20 19:00] VITALS: BP 116/68; PULSE 61; RESP 18; O2SAT 96
== END 2023-01-20 19:23 | disposition home or self-care (01) ==
PROVIDERS: Emergency Medicine; Emergency Provider Emergency Medicine; PCP Nurse Practitioner Family
DX: R00.2 Palpitations (principal); R07.9 Chest pain, unspecified; R00.0 Tachycardia, unspecified
CPT/HCPCS: 36415; 71045; 80053; 82550; 82553; 83690; 83735; 84484; 85025; 85610; 85730; 93005; 99284

== ENCOUNTER → 2023-04-07 13:24 | Outpatient (CLI) | payer OTHER, SELFPAY ==
--- NOTE | 2023-04-07 | DI.MRI.S_ITS ---
PROCEDURE: MR CERVICAL SPINE WO CON INDICATIONS: RADICULOPATHY - CERVICAL REGION TECHNIQUE: Noncontrast sagittal T1 spin echo and T2 fast spin echo, sagittal STIR, foraminal oblique sagittal T2 fast spin echo, and axial gradient echo or T2 fast spin echo through the cervical spine. COMPARISON: [facility], MR, MR CERVICAL SPINE WO CON, 06/13/2021, 19:11. FINDINGS: Image quality: Excellent. Alignment and Curvature: There is normal bony alignment. Bone Marrow: Marrow demonstrates normal overall signal. Spinal Cord: Visualized spinal cord has normal size and signal. No cerebellar tonsillar herniation. Paraspinous Soft Tissues: No paravertebral masses. Prevertebral soft tissues are normal in thickness. C2-C3: Mild disc desiccation and height loss. No canal stenosis. Moderate bilateral foraminal stenosis. These findings are unchanged from the study dated June 13, 2021. C3-C4: Mild disc desiccation. Broad-based disc bulge. Mild effacement of the CSF space. No canal stenosis. Severe bilateral foraminal stenosis. Findings are unchanged. C4-C5: Moderate disc desiccation and height loss. Broad-based disc bulge. No canal stenosis. Moderate to severe bilateral foraminal stenosis unchanged from the prior study. C5-C6: Severe disc desiccation and height loss. Large posterior disc bulge with effacement of the CSF space and deformity of the anterior aspect of the cord. Moderate canal stenosis. No cord signal abnormality. Severe bilateral foraminal stenosis. These findings are unchanged from the 2020 study. C6-C7: Severe disc desiccation and height loss. Right lateral broad-based disc bulge which narrows the right lateral recess and results in mild deformity of the right aspect of the cord. Mild canal stenosis. Moderate bilateral foraminal stenosis. Findings are unchanged from the prior study. C7-T1: Moderate disc desiccation and height loss. Broad-based disc bulge. No canal stenosis. No foraminal stenosis. IMPRESSION: 1. Findings are similar to the study dated June 13, 2021 including severe disc desiccation and height loss at C5-6 and C6-7 with posterior disc bulges and deformity of the anterior aspect of the cord at C5-6 and deformity of the right aspect of the cord at C6-7. There is no cord signal abnormality. 2. There is moderate canal stenosis at C5-6. No other canal stenosis of the cervical spine. 3. Severe bilateral foraminal stenosis at C3-4, C4-5, C5-6 and moderate bilateral foraminal stenosis at C6-7. Dictated by: Odessa Crawley M.D. on 04/07/2023 at 17:34 Approved by: Odessa Crawley M.D. on 04/07/2023 at 17:40
== END ==
PROVIDERS: PCP Student in an Organized Health Care Education/Training Program; Referring Provider Student in an Organized Health Care Education/Training Program; Visit Provider Student in an Organized Health Care Education/Training Program
DX: M50.122 Cervical disc disorder at C5-C6 level with radiculopathy (principal); M48.02 Spinal stenosis, cervical region
CPT/HCPCS: 72141

== ENCOUNTER → 2025-09-30 15:15 | Outpatient (CLI) | payer OTHER, SELFPAY ==
--- NOTE | 2025-09-30 15:17 | DI.US.S_ITS ---
PROCEDURE: US INJECTION TENDON SHEATH
== END ==
PROVIDERS: PCP Family Medicine; Referring Provider Orthopaedic Surgery; Visit Provider Orthopaedic Surgery
DX: M75.22 Bicipital tendinitis, left shoulder (principal)
CPT/HCPCS: 20550; 76942